=== PATIENT | female | born 1975 | race Caucasian/White ===

== ENCOUNTER → 2017-08-06 | Outpatient (CLI) | payer OTHER ==
[~2017-08-06] MED LIST: BENTYL20 MG PO; CIPRO500 M1 PO; FLAGYL250 MG PO; LOMOTIL TABLET1 EACH PO; LORTAB 5-500 T1 EACH PO
== END | disposition home or self-care (01) ==
LOC: RAD 08:13
PROC: 0UJ87ZZ Inspection of Fallopian Tube, Via Natural or Artificial Opening (ICD-10-PCS; principal; 2017-08-06)
PROC: BU18YZZ Fluoroscopy of Uterus and Fallopian Tubes using Other Contrast (ICD-10-PCS; principal; 2017-08-06)
PROC: 0UJD7ZZ Inspection of Uterus and Cervix, Via Natural or Artificial Opening (ICD-10-PCS; principal; 2017-08-06)
DX: Z31.41 Encounter for fertility testing (principal)
CPT/HCPCS: 74740